=== PATIENT | male | born 1990 | race Caucasian/White ===

== ENCOUNTER 2024-01-30 05:44 | Inpatient (IN) | payer MEDICAID ==
[~2024-01-30] VITALS: Ht 170.2 cm; Wt 79.0 kg
[2024-01-30] MEDS ORDERED: ONDANSETRON HCL/PF 4 MG/2 ML VIAL ONE ×2 (06:43→07:00)
[2024-01-30] MEDS ORDERED: MORPHINE SULFATE INJ 2 MG/ML DISP.SYRIN ONE ×2 (06:43→07:00)
[2024-01-30] MEDS: IV NS 0.9% 500 ML BAG IV ONE (06:51)
[2024-01-30] MEDS ORDERED: IOHEXOL-300 100 ML VIAL IV ONE (06:54)
[2024-01-30] MEDS ORDERED: IV NS 0.9% 250 ML IV ONE (06:55)
[2024-01-30] MEDS ORDERED: CT SWABBABLE VALVE TRANS SET 1 EA INFUS.SET MC ONE (06:55)
[2024-01-30] MEDS: ONDANSETRON HCL/PF 4 MG/2 ML VIAL IVP ONE (07:00)
[2024-01-30] MEDS: MORPHINE SULFATE INJ 2 MG/ML DISP.SYRIN IV ONE (07:00)
[2024-01-30 07:03] LABS: BASOPHILS # (AUTO) 0.1 K/uL (0.0-0.2); BASOPHILS % (AUTO) 0.7 % (0.0-2.0); EOSINOPHILS # (AUTO) 0.2 K/uL (0.0-0.7); EOSINOPHILS % (AUTO) 1.4 % (0.0-6.0); HEMATOCRIT 46 % (39-51); HEMOGLOBIN 15.6 g/dL (13.5-17.5); LYMPHOCYTES # (AUTO) 1.7 K/uL (0.8-4.8); LYMPHOCYTES % (AUTO) 13.4 % (20.0-44.0); MEAN CORPUSCULAR HEMOGLOBIN 35 PG (26.0-33.0); MEAN CORPUSCULAR HGB CONC 34 g/dl (31.0-36.0); MEAN CORPUSCULAR VOLUME 102 fL (80-96); MONOCYTES % (AUTO) 7.4 % (2.0-12.0); NEUTROPHILS % (AUTO) 77.1 % (43.0-81.0); PLATELET COUNT (AUTO) 384 K/uL (150-450); RED BLOOD CELL COUNT(AUTO) 4.48 MIL/uL (4.5-6.0); RED CELL DISTRIBUTION WIDTH 14.6 % (11.5-15.0)
[2024-01-30 07:25] LABS: ALANINE AMINOTRANSFERASE 157 U/L (12-78); ALBUMIN 3.8 g/dL (3.4-5.0); ALKALINE PHOSPHATASE 96 U/L (46-116); ASPARTATE AMINOTRANSFERASE 191 U/L (15-37); BILIRUBIN,DIRECT 0.3 mg/dL (0.0-0.2); BILIRUBIN,TOTAL 1.2 mg/dL (0.2-1.0); CALCIUM, SERUM 9.8 mg/dL (8.5-10.1); CARBON DIOXIDE 29 mmol/L (21-32); CHLORIDE 99 mmol/L (98-107); CREATININE 0.7 mg/dL (0.6-1.3); GLUCOSE 194 mg/dL (74-106); POTASSIUM 3.4 mmol/L (3.5-5.1); SODIUM SERUM 138 mmol/L (136-145); TOTAL PROTEIN, SERUM 7.9 g/dL (6.4-8.2); UREA NITROGEN, BLOOD 5 mg/dL (7-18)
[2024-01-30 08:15] LABS: LIPASE > 375 U/L (16-77)
[2024-01-30] MEDS ORDERED: HYDROMORPHONE 1 MG/1 ML DISP.SYRIN ONE ×2 (09:42→11:59)
[2024-01-30 09:50] LABS: APPEARANCE,URINE CLEAR (CLEAR); BILIRUBIN,URINE 1+ (NEGATIVE); BLOOD, URINE NEGATIVE Ery/uL (NEGATIVE); COLOR,URINE YELLOW (YELLOW); KETONES,URINE TRACE mg/dL (NEGATIVE); LEUKOCYTE ESTERASE ,URINE NEGATIVE (NEGATIVE); NITRITE, URINE NEGATIVE (NEGATIVE); PROTEIN,URINE 1+ mg/dl (NEGATIVE); UGLUCOSE TRACE mg/dL (NEGATIVE)
[2024-01-30 09:59] LABS: ADD URINE CULTURE NO; BACTERIA,URINE Rare /HPF (None Seen); RBC,URINE 0-2 /HPF (0-2); SQUAMOUS EPITHELIAL CELL,UR Rare /HPF (None Seen)
[2024-01-30] MEDS: IV NS 0.9% 1,000 ML BAG IV ONE (09:59)
[2024-01-30] MEDS: HYDROMORPHONE INJ 2 MG/ML DISP.SYRIN IV ONE (10:01)
[2024-01-30] MEDS ORDERED: MAGNESIUM HYDROXIDE 30 ML UDC PO PRN (12:00)
[2024-01-30] MEDS ORDERED: ONDANSETRON HCL/PF 4 MG/2 ML VIAL IVP PRN (12:00)
[2024-01-30] MEDS ORDERED: MAG HYDROX/AL HYDROX/SIMETH 30 ML UDC PO PRN (12:00)
[2024-01-30] MEDS: IV NS 0.9% 1,000 ML IV ONE (12:07)
[2024-01-30] MEDS: HYDROMORPHONE 1 MG/1 ML DISP.SYRIN IV ONE (12:08)
[2024-01-30] MEDS: PIPERACILLIN /TAZOBACTAM 3.375 G in IV D5W 50 ML IV SCH (12:16)
[2024-01-30 15:10] VITALS: O2SAT 99
[2024-01-30] MEDS: HYDROMORPHONE INJ 2 MG/ML DISP.SYRIN IV PRN (16:08)
[2024-01-30] MEDS: IV NS 0.9% 1,000 ML IV PRN (17:08)
[2024-01-30] MEDS ORDERED: KETOROLAC TROMETHAMINE 15 MG/ML VIAL IM PRN (18:30)
[2024-01-30] MEDS: KETOROLAC TROMETHAMINE 15 MG/ML VIAL IV PRN (19:31)
[2024-01-30 20:00] VITALS: BP 149/90; TEMP 97.3; O2SAT 97
[2024-01-31 06:41] LABS: BASOPHILS % (AUTO) 0.1 % (0.0-2.0); HEMATOCRIT 52 % (39-51); HEMOGLOBIN 17.6 g/dL (13.5-17.5); LYMPHOCYTES # (AUTO) 0.6 K/uL (0.8-4.8); LYMPHOCYTES % (AUTO) 3.2 % (20.0-44.0); MEAN CORPUSCULAR HEMOGLOBIN 35 PG (26.0-33.0); MEAN CORPUSCULAR HGB CONC 34 g/dl (31.0-36.0); MEAN CORPUSCULAR VOLUME 103 fL (80-96); MONOCYTES % (AUTO) 5.7 % (2.0-12.0); NEUTROPHILS # (AUTO) 15.6 K/uL (1.8-8.9); PLATELET COUNT (AUTO) 250 K/uL (150-450); RED BLOOD CELL COUNT(AUTO) 5.02 MIL/uL (4.5-6.0); WHITE BLOOD COUNT (AUTO) 17.1 K/uL (4.3-11.0)
[2024-01-31 07:19] LABS: ALANINE AMINOTRANSFERASE 87 U/L (12-78); ALKALINE PHOSPHATASE 73 U/L (46-116); AMYLASE 580 U/L (25-115); ASPARTATE AMINOTRANSFERASE 65 U/L (15-37); BILIRUBIN,TOTAL 2.3 mg/dL (0.2-1.0); CALCIUM, SERUM 9.2 mg/dL (8.5-10.1); CARBON DIOXIDE 21 mmol/L (21-32); CHLORIDE 103 mmol/L (98-107); CREATININE 1.2 mg/dL (0.6-1.3); GLUCOSE 176 mg/dL (74-106); PHOSPHORUS 4.3 mg/dL (2.5-4.9); POTASSIUM 4.5 mmol/L (3.5-5.1); SODIUM SERUM 138 mmol/L (136-145); TOTAL PROTEIN, SERUM 6.8 g/dL (6.4-8.2); UREA NITROGEN, BLOOD 20 mg/dL (7-18)
[2024-01-31 07:43] LABS: MAGNESIUM 1.5 mg/dL (1.8-2.4)
[2024-01-31 07:46] LABS: LIPASE > 375 U/L (16-77)
[2024-01-31 08:00] VITALS: BP 141/100; TEMP 98.4; O2SAT 94
[2024-01-31] MEDS: PANTOPRAZOLE 40 MG VIAL IV SCH (08:36)
[2024-01-31] MEDS: IV NS 0.9% 1,000 ML IV SCH (09:50)
[2024-01-31] MEDS ORDERED: CEFD300C3 PO (11:16)
[2024-01-31] MEDS ORDERED: CLIN300C12 PO (11:16)
[2024-01-31] MEDS: Magnesium 1GM/D5W 100ML PREMIX 100 ML IV SCH (11:59)
[2024-01-31] MEDS ORDERED: GADOTERATE MEGLUMINE 10 MMOL/20 ML VIAL IV ONE (14:35)
[2024-01-31 16:00] VITALS: BP 145/100; TEMP 99.4; O2SAT 98
[2024-01-31 20:06] VITALS: BP 144/102; TEMP 99.3; O2SAT 94
[2024-01-31 20:09] VITALS: BP 123/75; TEMP 97.5; O2SAT 99
[2024-02-01 06:26] LABS: BASOPHILS % (AUTO) 0.1 % (0.0-2.0); HEMATOCRIT 41 % (39-51); LYMPHOCYTES # (AUTO) 0.7 K/uL (0.8-4.8); MEAN CORPUSCULAR HEMOGLOBIN 35 PG (26.0-33.0); MEAN CORPUSCULAR HGB CONC 34 g/dl (31.0-36.0); MEAN CORPUSCULAR VOLUME 102 fL (80-96); MONOCYTES # (AUTO) 0.6 K/uL (0.1-1.30); MONOCYTES % (AUTO) 4.7 % (2.0-12.0); NEUTROPHILS # (AUTO) 12.2 K/uL (1.8-8.9); NEUTROPHILS % (AUTO) 90.2 % (43.0-81.0); PLATELET COUNT (AUTO) 165 K/uL (150-450); RED BLOOD CELL COUNT(AUTO) 4.02 MIL/uL (4.5-6.0); RED CELL DISTRIBUTION WIDTH 14.5 % (11.5-15.0); WHITE BLOOD COUNT (AUTO) 13.5 K/uL (4.3-11.0)
[2024-02-01 07:03] LABS: CALCIUM, SERUM 8.3 mg/dL (8.5-10.1); CREATININE 0.7 mg/dL (0.6-1.3); MAGNESIUM 1.6 mg/dL (1.8-2.4); PHOSPHORUS 2.3 mg/dL (2.5-4.9); POTASSIUM 4.2 mmol/L (3.5-5.1)
[2024-02-01 08:00] VITALS: BP 136/107; TEMP 98.6; O2SAT 94
[2024-02-01] MEDS: Magnesium 1GM/D5W 100ML PREMIX 100 ML IV SCH (10:02)
[2024-02-01] MEDS: K PHOS NEUTRAL 250 MG TABLET PO ONE (15:33)
[2024-02-01 16:18] VITALS: BP 159/108; TEMP 98.2; O2SAT 94
[2024-02-01 20:09] VITALS: BP 148/102; TEMP 99.7; O2SAT 95
[2024-02-02 08:00] VITALS: BP 155/111; TEMP 99.1; O2SAT 99
[2024-02-02] MEDS ORDERED: K PHOS NEUTRAL 250 MG TABLET PO ONE (15:30)
[2024-02-03] MEDS ORDERED: PANTOPRAZOLE 40 MG TABLET.DR PO SCH (07:30)
== END 2024-02-02 15:48 | disposition home or self-care (01) | DRG 282 ==
LOC: ER 05:47 → MED 15:04
PROVIDERS: ADMIT Nurse Practitioner Acute Care; ATTEND Internal Medicine
DX: K85.20 Alcohol induced acute pancreatitis without necrosis or infection (principal); K76.0 Fatty (change of) liver, not elsewhere classified; D72.829 Elevated white blood cell count, unspecified; E87.6 Hypokalemia; F10.10 Alcohol abuse, uncomplicated; R74.01 Elevation of levels of liver transaminase levels; Y90.9 Presence of alcohol in blood, level not specified; R10.13 Epigastric pain; Z71.41 Alcohol abuse counseling and surveillance of alcoholic
CPT/HCPCS: 36415; 71045-TC; 74183; 76705-TC; 80048-TC; 80053-TC; 80076-TC; 81001; 82150-TC; 83690-TC; 83735-TC; 84100-TC; 84484-TC; 85025-TC; 87086-TC; A4223; A9575; G0378; J1170; J1885; J2270; J2405; J2470; J2543; J3475; J7030; J7040; J7050; J7060; Q9967